=== PATIENT | female | born 1995 | race African-American/Black ===

== ENCOUNTER 2017-01-15 15:05 | Emergency (ER) | payer OTHER ==
[~2017-01-15 15:05] MED LIST: ONDA4TAB10 SL
[2017-01-15 15:54] LABS: POTASSIUM ISTAT 3.8 mmol/L (3.5-5.0)
[2017-01-15] MEDS ORDERED: HYDROcodone/APAP 5/325MG 1 TAB TABLET PO ONE (16:00)
[2017-01-15] MEDS ORDERED: IV NORMAL SALINE 1000ML BAG 1,000 ML IV ONE (16:00)
--- NOTE | 2017-01-15 16:17 | EKG ---
[facility] [address] [place] [address] Test Date: 2017-01-15 Test Time: 15:25:08 Pat Name: JUNIE FERMIN Department: Room: Gender: F Instrument Tester: : 1995 Requested By: AVERY GIL Order Number: [id number] Reading MD: Jerry Pruitt Measurements Intervals [place] Rate: 93 P: 52 MI: 130 QRS: 48 QRSD: 70 T: 31 QT: 348 QTc: 435 Interpretive Statements SINUS RHYTHM Electronically Signed On 01-18-2017 8:42:49 CDT by Jerry Pruitt
[2017-01-15 17:17] LABS: BILIRUBIN,URINE NEGATIVE (NEG); GLUCOSE,URINE NEGATIVE (NEG); NITRITE,URINE POSITIVE (NEG); PH,URINE 5.5; PROTEIN,URINE NEGATIVE (NEG-TRACE); UROBILINOGEN,URINE 0.2 mg/dL (0.2 mg/dL)
[2017-01-15 17:29] LABS: BACTERIA,URINE MANY /HPF (0-FEW); RBC,URINE 0 /HPF (0-2); SQUAMOUS EPITHELIAL CELL,UR MANY /LPF
--- NOTE | 2017-01-15 17:48 | RAD ---
EXAM: 1. CT HEAD WITHOUT CONTRAST. 2. CT FACIAL BONES WITHOUT CONTRAST. HISTORY: Fall, syncope, headache, facial trauma. TECHNIQUE: Computed tomography of the head and facial bones was performed without intravenous contrast. COMPARISON: None. FINDINGS: There is no intracranial hemorrhage. Galarza-white differentiation is preserved. The ventricles are normal in size and position. The temporal bones are unremarkable. The calvarium reveals no suspicious lesions. There are mildly depressed fractures of the nasal bones on the right greater than left. There is an overlying soft tissue laceration and swelling. The nasal septum is not deviated. No additional facial fractures are seen. The visualized paranasal sinuses appear clear. The orbits are unremarkable. IMPRESSION: 1. No acute intracranial findings. 2. Mildly depressed fractures of the right greater than left nasal bone with an overlying laceration. *One or more of the following individualized dose reduction techniques were utilized for this examination: 1. Automated exposure control. 2. Adjustment of the mA and/or kV according to patient size. 3. Use of iterative reconstruction technique. Electronically signed by: Brayden Zuñiga MD (01/15/2017 5:45 PM) [facility]
[2017-01-15 18:11] VITALS: BP 99/56
[2017-01-15] MEDS ORDERED: HYDR-971 PO (18:23)
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
== END 2017-01-15 18:32 | disposition home or self-care (01) ==
LOC: ER 15:05
DX: S02.2XXA Fracture of nasal bones, initial encounter for closed fracture (principal); R55 Syncope and collapse; W22.8XXA Striking against or struck by other objects, initial encounter; Y93.89 Activity, other specified; Y92.89 Other specified places as the place of occurrence of the external cause; Y99.8 Other external cause status
CPT/HCPCS: 70450; 70486; 80047; 81001; 81025; 84484; 87086; 93005; 96360; 99285; J7030

== ENCOUNTER 2017-04-15 14:10 | Emergency (ER) | payer OTHER ==
[~2017-04-15] VITALS: Ht 157.5 cm; Wt 49.9 kg
[~2017-04-15 14:10] MED LIST changes: +HYDR-971 PO
[2017-04-15 14:25] VITALS: BP 110/54
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
[2017-04-15] MEDS ORDERED: TRAM-48 PO (15:32)
== END 2017-04-15 15:37 | disposition home or self-care (01) ==
LOC: ER 14:10
DX: S63.632A Sprain of interphalangeal joint of right middle finger, initial encounter (principal); H11.31 Conjunctival hemorrhage, right eye; Y08.89XA Assault by other specified means, initial encounter; Y93.89 Activity, other specified; Y99.8 Other external cause status; Y92.89 Other specified places as the place of occurrence of the external cause
CPT/HCPCS: 73140; 81025; 99283; 99284

== ENCOUNTER 2017-07-03 15:02 | Emergency (ER) | payer SELFPAY, OTHER ==
[2017-07-03 15:25] LABS: URINE HCG POC HCG POSITIVE (Negative)
[2017-07-03 16:02] LABS: BILIRUBIN,URINE NEGATIVE (NEG); CLARITY,URINE CLEAR; COLOR,URINE YELLOW; GLUCOSE,URINE NEGATIVE (NEG); NITRITE,URINE POSITIVE (NEG); PROTEIN,URINE NEGATIVE (NEG-TRACE)
[2017-07-03 16:16] LABS: BACTERIA,URINE MANY /HPF (0-FEW); RBC,URINE 0 /HPF (0-2); SQUAMOUS EPITHELIAL CELL,UR MOD /LPF
== END 2017-07-03 16:07 | disposition home or self-care (01) ==
LOC: ER 15:02
DX: O21.0 Mild hyperemesis gravidarum (principal); Z3A.00 Weeks of gestation of pregnancy not specified; Z87.440 Personal history of urinary (tract) infections
CPT/HCPCS: 81001; 81025; 87086; 99284

== ENCOUNTER 2017-07-27 17:29 | Emergency (ER) | payer OTHER ==
[2017-07-27 18:31] LABS: INFLUENZA A PATIENT NEGATIVE (NEGATIVE); INFLUENZA B PATIENT NEGATIVE (NEGATIVE); OBC FLU VALID
== END 2017-07-27 19:04 | disposition home or self-care (01) ==
LOC: ER 17:29
DX: J11.1 Influenza due to unidentified influenza virus with other respiratory manifestations (principal)
CPT/HCPCS: 87804; 87804-59; 99284

== ENCOUNTER 2017-08-21 15:19 | Emergency (ER) | payer OTHER | END 2017-08-21 16:55 | disposition home or self-care (01) | LOC: ER 15:19 | DX: O9A.211 Injury, poisoning and certain other consequences of external causes complicating pregnancy, first trimester (principal); S01.21XA Laceration without foreign body of nose, initial encounter; Z3A.12 12 weeks gestation of pregnancy; W22.8XXA Striking against or struck by other objects, initial encounter; Y93.89 Activity, other specified; Y92.89 Other specified places as the place of occurrence of the external cause; Y99.8 Other external cause status | CPT/HCPCS: 99281 ==

== ENCOUNTER 2017-08-26 11:10 | Emergency (ER) | payer OTHER ==
[2017-08-26 11:56] LABS: ADD MAN DIFF? NO
[2017-08-26 12:01] LABS: BASO % 1 % (0-3); EOS # 0.1 x10^3/uL (0.0-0.7); EOS % 2 % (0-3); HEMATOCRIT 32.9 % (36.0-47.0); HEMOGLOBIN 11.8 g/dL (12.0-15.5); LYMPH # 1.5 x10^3/uL (1.0-4.8); LYMPH % 35 % (24-48); MEAN CORPUSCULAR HEMOGLOBIN 31 pg (25-35); MEAN CORPUSCULAR HGB CONC 36 g/dL (31-37); MEAN CORPUSCULAR VOLUME 88 fL (79-100); MONO # 0.2 x10^3/uL (0.0-1.1); MONO % 5 % (0-9); NEUT # 2.5 x10^3uL (1.8-7.7); NEUT % 58 % (31-73); PLATELET COUNT 215 x10^3/uL (140-400); RED BLOOD COUNT 3.75 x10^6/uL (3.50-5.40); RED CELL DISTRIBUTION WIDTH 12.9 % (11.5-14.5); WHITE BLOOD COUNT 4.2 x10^3/uL (4.0-11.0)
[2017-08-26 13:40] LABS: BILIRUBIN,URINE NEGATIVE (NEG); CLARITY,URINE CLEAR; COLOR,URINE YELLOW; GLUCOSE,URINE NEGATIVE (NEG); NITRITE,URINE POSITIVE (NEG); PROTEIN,URINE NEGATIVE (NEG-TRACE); UROBILINOGEN,URINE 0.2 mg/dL (0.2 mg/dL)
[2017-08-26 13:55] LABS: BACTERIA,URINE MANY /HPF (0-FEW); SQUAMOUS EPITHELIAL CELL,UR MOD /LPF; WBC,URINE 20-40 /HPF (0-4)
[2017-08-26] MEDS: cefTRIAXone IM 1 GM VIAL IM (14:27)
== END 2017-08-26 14:30 | disposition home or self-care (01) ==
LOC: ER 11:10
DX: O20.0 Threatened abortion (principal); O23.41 Unspecified infection of urinary tract in pregnancy, first trimester; Z3A.13 13 weeks gestation of pregnancy
CPT/HCPCS: 36415; 76801; 81001; 84702; 85025; 86850; 86900; 86901; 87086; 96372; 99285-25; J0696

== ENCOUNTER 2017-12-30 12:20 | Emergency (ER) | payer OTHER ==
[2017-12-30 14:09] LABS: BILIRUBIN,URINE NEGATIVE (NEG); CLARITY,URINE CLEAR; COLOR,URINE YELLOW; GLUCOSE,URINE NEGATIVE (NEG); NITRITE,URINE NEGATIVE (NEG); PROTEIN,URINE NEGATIVE (NEG-TRACE); UROBILINOGEN,URINE 0.2 mg/dL (0.2 mg/dL)
[2017-12-30 14:33] LABS: BACTERIA,URINE MOD /HPF (0-FEW); RBC,URINE 0 /HPF (0-2); SQUAMOUS EPITHELIAL CELL,UR FEW /LPF; WBC,URINE OCC /HPF (0-4)
[2017-12-31 06:31] LABS: NEGATIVE OBC STREP NEG; POSITIVE OBC STREP POS
== END 2017-12-30 15:06 | disposition home or self-care (01) ==
LOC: ER 15:06
DX: O26.893 Other specified pregnancy related conditions, third trimester (principal); J02.9 Acute pharyngitis, unspecified; O23.43 Unspecified infection of urinary tract in pregnancy, third trimester; Z3A.31 31 weeks gestation of pregnancy
CPT/HCPCS: 81001; 87070; 87880; 99284